=== PATIENT | female | born 1990 | race Caucasian/White ===

== ENCOUNTER → 2017-06-06 | Outpatient (CLI) | payer OTHER ==
[~2017-06-06] MED LIST: IOHEXOL 180 MG/ML 10 ML VIAL. INT UTERIN
== END | disposition home or self-care (01) ==
LOC: KCIC 08:27
DX: N97.9 Female infertility, unspecified (principal); Z90.49 Acquired absence of other specified parts of digestive tract
CPT/HCPCS: 74400

== ENCOUNTER → 2017-06-30 | Outpatient (CLI) | payer OTHER ==
[2017-06-30] MEDS: IOHEXOL 180 MG/ML 10 ML VIAL. INT UTERIN (11:16)
== END | disposition home or self-care (01) ==
LOC: KCIC 08:15
DX: N97.9 Female infertility, unspecified (principal)
CPT/HCPCS: 74400